=== PATIENT | female | born 1935 | race Caucasian/White ===

== ENCOUNTER 2017-08-21 08:33 | Inpatient (IN) | payer MEDICARE, OTHER ==
[2017-08-21] MEDS ORDERED: PROPOFOL 50 ML IV (08:38)
[2017-08-21] MEDS: IV NORMAL SALINE 1000ML BAG 1,000 ML IV ×3 (08:40→17:12)
[2017-08-21] MEDS ORDERED: dilTIAZem IV PUSH 25 MG/5 ML VIAL (08:42)
[2017-08-21] MEDS: dilTIAZem IV PUSH 25 MG/5 ML VIAL IVP (08:43)
[2017-08-21] MEDS: PROPOFOL 20 ML IV (08:44)
[2017-08-21] MEDS: ACETAMINOPHEN 120 MG SUPP.RECT. PR (08:50)
[2017-08-21] MEDS ORDERED: ACETAMINOPHEN 650 MG SUPP.RECT. (08:58)
[2017-08-21] MEDS ORDERED: NOREPINEPHRIN PREMIX 250 ML IV (09:09)
[2017-08-21] MEDS: NOREPINEPHRIN PREMIX 250 ML IV ×2 (09:17→16:29)
[2017-08-21 09:19] LABS: BILIRUBIN,URINE NEGATIVE (NEG); CLARITY,URINE CLEAR; COLOR,URINE YELLOW; GLUCOSE,URINE NEGATIVE (NEG); NITRITE,URINE NEGATIVE (NEG); PH,URINE 5.5; PROTEIN,URINE 30 mg/dL (NEG-TRACE); UROBILINOGEN,URINE 0.2 mg/dL (0.2 mg/dL)
[2017-08-21 09:21] LABS: ANION GAP 14 (6-14); BLOOD UREA NITROGEN 32 mg/dL (7-20); BUN/CREATININE RATIO 20 (6-20); CALCIUM 7.9 mg/dL (8.5-10.1); CARBON DIOXIDE 29 mmol/L (21-32); CHLORIDE 98 mmol/L (98-107); CREATININE 1.6 mg/dL (0.6-1.0); GFR 30.9; GLUCOSE 114 mg/dL (70-99); POTASSIUM 3.5 mmol/L (3.5-5.1); SODIUM 141 mmol/L (136-145)
[2017-08-21 09:23] LABS: TROPONINI 0.214 ng/mL (0.000-0.055)
[2017-08-21 09:25] LABS: BASO % 0 % (0-3); EOS % 0 % (0-3); LYMPH # 0.9 x10^3/uL (1.0-4.8); LYMPH % 8 % (24-48); MEAN CORPUSCULAR HEMOGLOBIN 22 pg (25-35); MEAN CORPUSCULAR HGB CONC 29 g/dL (31-37); MEAN CORPUSCULAR VOLUME 77 fL (79-100); MONO # 0.2 x10^3/uL (0.0-1.1); MONO % 2 % (0-9); NEUT # 10.4 x10^3uL (1.8-7.7); NEUT % 90 % (31-73); PLATELET COUNT 210 x10^3/uL (140-400); RED BLOOD COUNT 2.64 x10^6/uL (3.50-5.40); RED CELL DISTRIBUTION WIDTH 17.5 % (11.5-14.5); WHITE BLOOD COUNT 11.6 x10^3/uL (4.0-11.0)
[2017-08-21 09:25] LABS: NT-PRO BNP 4872 pg/mL (0-449)
[2017-08-21 09:26] LABS: THYROID STIM HORMONE (TSH) 1.787 uIU/mL (0.358-3.74)
[2017-08-21 09:26] LABS: ALBUMIN 2.7 g/dL (3.4-5.0); ALBUMIN/GLOBULIN RATIO 0.8 (1.0-1.7); ALK PHOS 91 U/L (46-116); ALT (SGPT) 42 U/L (14-59); AST (SGOT) 111 U/L (15-37); CREATINE KINASE 30 U/L (26-192); HEMOGLOBIN 5.9 g/dL (12.0-15.5); LIPASE 84 U/L (73-393); MAGNESIUM 2.4 mg/dL (1.8-2.4); TOTAL BILIRUBIN 0.5 mg/dL (0.2-1.0); TOTAL PROTEIN 6.1 g/dL (6.4-8.2)
[2017-08-21 09:27] LABS: ADD MAN DIFF? YES; HEMATOCRIT 20.3 % (36.0-47.0)
[2017-08-21 09:30] LABS: INFLUENZA A PATIENT NEGATIVE (NEGATIVE)
[2017-08-21 09:31] LABS: INFLUENZA B PATIENT POSITIVE (NEGATIVE); OBC FLU VALID
[2017-08-21] MEDS: MIDAZOLAM HCL/PF 5 MG/5 ML VIAL. IV (09:31)
[2017-08-21] MEDS: PIPERACILLIN/TAZOBACTAM 3.375 GM in IV NORMAL SALINE 50ML 50 ML IV (09:37)
[2017-08-21 09:40] LABS: BASE EXCESS COOX 4 mmol/L (-3-3); BODY TEMP COOX 103.8 DEG; CARBON MONOXIDE 0.9 % (0.0-1.9); CORRECTED PCO2 COOX 37 mmHg; CORRECTED PO2 COOX 151 mmHg; HCO3 COOX 27 mmol/L (21-28); METHEMOGLOBIN 0.7 % (0.0-1.9); OXYHEMOGLOBIN 96.7 %; PCO2 COOX 33 mmHg (35-46); PH COOX 7.54 (7.35-7.45); PO2 COOX 131 mmHg (65-108); SAT O2 COOX 98 % (92-99); TOTAL HEMOGLOBIN 5.4 g/dL
[2017-08-21] MEDS: VANCOMYCIN 2 GM in IV DEXTROSE 5% 500 ML IV (09:43)
[2017-08-21] MEDS ORDERED: levOFLOXacin PER PHARMACY. MC (09:45)
[2017-08-21 09:50] LABS: INR 1.2 (0.8-1.1); PARTIAL THROMBOPLASTIN TIME 27 SEC (24-38)
[2017-08-21 09:54] LABS: LACTIC ACID 6.8 mmol/L (0.4-2.0)
[2017-08-21] MEDS ORDERED: OSELTAMIVIR 30 MG/5 ML ORAL.SUSP. GT (10:01)
[2017-08-21 10:18] LABS: BACTERIA,URINE 0 /HPF (0-FEW); HYALINE CASTS, URINE OCCASIONAL /HPF; RBC,URINE OCC /HPF (0-2); SQUAMOUS EPITHELIAL CELL,UR OCC /LPF; WBC,URINE 0 /HPF (0-4)
[2017-08-21] MEDS ORDERED: ETOMIDATE 20 MG/10 ML VIAL. IV (10:54)
[2017-08-21] MEDS ORDERED: SUCCINYLCHOLINE 200 MG/10 ML VIAL. (10:55)
[2017-08-21] MEDS ORDERED: fentaNYL PF VIAL 100 MCG/2 ML VIAL (10:55)
[2017-08-21] MEDS ORDERED: MIDAZOLAM HCL/PF 5 MG/5 ML VIAL. (10:55)
[2017-08-21] MEDS ORDERED: VANCOMYCIN 1.25 GM in IV DEXTROSE 5 %-0.2 % NACL 250 ML IV (11:00)
[2017-08-21] MEDS ORDERED: methylPREDNISolone SOD SUCC PF 40 MG/ML VIAL. IV (12:00)
[2017-08-21] MEDS: MIDAZOLAM 100MG/100ML PREMIX 100 ML IV ×2 (12:21→18:04)
[2017-08-21] MEDS: OSELTAMIVIR 30 MG/5 ML ORAL.SUSP. GT (12:21)
[2017-08-21] MEDS: IPRATRPIUM/ALBUTEROL 0.5/2.5MG 3 ML NEBU. NEB ×3 (12:24→20:00)
[2017-08-21] MEDS: VANCOMYCIN PER PHARMACY MC ×2 (12:33→12:43)
[2017-08-21 12:51] LABS: LACTIC ACID 2.1 mmol/L (0.4-2.0)
[2017-08-21] MEDS: fentaNYL PF VIAL 100 MCG/2 ML VIAL IV ×2 (13:00)
[2017-08-21 13:56] LABS: % BANDS 15 % (0-9); % LYMPHS 12 % (24-48); % MONOS 3 % (0-10); % SEGS 70 % (35-66)
[2017-08-21 13:57] LABS: ANISOCYTOSIS SLIGHT; HYPOCHROMIA MOD; MICROCYTOSIS SLIGHT; OVALOCYTES FEW; PLT ESTIMATE ADEQUATE (ADEQUATE); POIKILOCYTOSIS SLIGHT; POLYCHROMASIA SLIGHT; SCHISTOCYTES OCC
[2017-08-21 14:41] LABS: IMMEDIATE SPIN CROSSMATCH 1 3
[2017-08-21 15:43] LABS: TROPONINI 0.856 ng/mL (0.000-0.055)
[2017-08-21] MEDS: methylPREDNISolone SOD SUCC PF 40 MG/ML VIAL. IV (16:03)
[2017-08-21] MEDS ORDERED: NALOXONE 0.4 MG/ML VIAL. IV (17:15)
[2017-08-21 17:49] LABS: HEMOGLOBIN 7.4 g/dL (12.0-15.5); MEAN CORPUSCULAR HEMOGLOBIN 25 pg (25-35); MEAN CORPUSCULAR HGB CONC 32 g/dL (31-37); MEAN CORPUSCULAR VOLUME 77 fL (79-100); PLATELET COUNT 114 x10^3/uL (140-400); RED BLOOD COUNT 3.01 x10^6/uL (3.50-5.40); RED CELL DISTRIBUTION WIDTH 17.5 % (11.5-14.5); WHITE BLOOD COUNT 4.9 x10^3/uL (4.0-11.0)
[2017-08-21] MEDS ORDERED: PIPERACILLIN/TAZOBACTAM 3.375 GM in IV DEXTROSE 5% 50 ML IV (18:00)
[2017-08-21] MEDS ORDERED: MICAFUNGIN 100 MG in IV DEXTROSE 5% 100 ML IV (18:00)
[2017-08-21] MEDS: PIPERACILLIN/TAZOBACTAM 3.375 GM in IV NORMAL SALINE 100ML 100 ML IV (18:03)
[2017-08-21] MEDS: MICAFUNGIN 100 MG in IV NORMAL SALINE 100ML 100 ML IV (19:15)
[2017-08-21] MEDS: FAMOTIDINE 20 MG/2 ML VIAL IVP (20:38)
[2017-08-21 22:10] LABS: TROPONINI 0.554 ng/mL (0.000-0.055)
[2017-08-21 23:10] LABS: MRSA BY PCR Negative (Negative)
[2017-08-22] MEDS: methylPREDNISolone SOD SUCC PF 40 MG/ML VIAL. IV ×3 (00:16→17:47)
[2017-08-22] MEDS: PIPERACILLIN/TAZOBACTAM 3.375 GM in IV NORMAL SALINE 100ML 100 ML IV ×4 (00:16→17:47)
[2017-08-22 00:25] LABS: POC GLUCOSE 137 mg/dL (70-99)
[2017-08-22 06:31] LABS: ADD MAN DIFF? NO
[2017-08-22 06:32] LABS: BASO % 0 % (0-3); EOS % 0 % (0-3); HEMATOCRIT 24.6 % (36.0-47.0); HEMOGLOBIN 7.9 g/dL (12.0-15.5); LYMPH # 0.3 x10^3/uL (1.0-4.8); LYMPH % 3 % (24-48); MEAN CORPUSCULAR HEMOGLOBIN 24 pg (25-35); MEAN CORPUSCULAR HGB CONC 32 g/dL (31-37); MEAN CORPUSCULAR VOLUME 76 fL (79-100); MONO # 0.2 x10^3/uL (0.0-1.1); MONO % 2 % (0-9); NEUT # 9.1 x10^3uL (1.8-7.7); NEUT % 95 % (31-73); PLATELET COUNT 94 x10^3/uL (140-400); RED BLOOD COUNT 3.26 x10^6/uL (3.50-5.40); RED CELL DISTRIBUTION WIDTH 17.4 % (11.5-14.5); WHITE BLOOD COUNT 9.6 x10^3/uL (4.0-11.0)
[2017-08-22 06:45] LABS: POC GLUCOSE 136 mg/dL (70-99)
[2017-08-22 06:47] LABS: ANION GAP 11 (6-14); BLOOD UREA NITROGEN 27 mg/dL (7-20); CALCIUM 7.2 mg/dL (8.5-10.1); CARBON DIOXIDE 30 mmol/L (21-32); CHLORIDE 103 mmol/L (98-107); CREATININE 1.2 mg/dL (0.6-1.0); GLUCOSE 142 mg/dL (70-99); SODIUM 144 mmol/L (136-145)
[2017-08-22 06:49] LABS: POTASSIUM 2.4 mmol/L (3.5-5.1)
[2017-08-22 06:57] LABS: AGAP ISTAT 18 mmol/L (6-14); BUN ISTAT 41 mg/dL (8-26); CHLORIDE ISTAT 92 mmol/L (98-110); CREATININE ISTAT 1.5 mg/dL (0.5-1.4); GLUCOSE ISTAT 115 mg/dL (70-99); HEMATOCRIT ISTAT 22 % (36-40); HEMOGLOBIN ISTAT 7.5 g/dL (12-15); ION CA ISTAT 0.97 mmol/L (1.13-1.32); SODIUM ISTAT 136 mmol/L (135-145); TOT CO2 ISTAT 30 mmol/L (23-32)
[2017-08-22 06:58] LABS: TROPONIN BY ISTAT 0.13 ng/ml (<0.08)
[2017-08-22] MEDS: IPRATRPIUM/ALBUTEROL 0.5/2.5MG 3 ML NEBU. NEB ×4 (07:29→20:16)
[2017-08-22 07:51] LABS: BASE EXCESS ABG 4 mmol/L (-3-3); HCO3 ABG 25 mmol/L (21-28); PCO2 ABG 25 mmHg (35-46); PO2 ABG 108 mmHg (65-108); SAT O2 ABG 98 % (92-99)
[2017-08-22 07:57] LABS: PH ABG 7.62 (7.35-7.45)
[2017-08-22] MEDS ORDERED: POTASSIUM CHLORIDE 20 MEQ TABLET.ER. PO (08:00)
[2017-08-22] MEDS: NOREPINEPHRIN PREMIX 250 ML IV (08:01)
[2017-08-22] MEDS: POTASSIUM CHLORIDE 20MEQ 50 ML IV ×4 (08:18→12:57)
[2017-08-22] MEDS: MIDAZOLAM 100MG/100ML PREMIX 100 ML IV ×2 (08:33→20:54)
[2017-08-22] MEDS: VANCOMYCIN PER PHARMACY MC ×2 (10:10→10:24)
[2017-08-22] MEDS: VANCOMYCIN 1.25 GM in IV DEXTROSE 5 %-0.2 % NACL 250 ML IV (11:35)
[2017-08-22] MEDS: DIGOXIN IV 500 MCG/2 ML AMPUL. IV ×3 (11:57→19:30)
[2017-08-22] MEDS ORDERED: ACETAMINOPHEN 325 MG TABLET. PO (13:00)
[2017-08-22] MEDS: ASPIRIN CHEWABLE 81 MG TABLET. PO (13:41)
[2017-08-22] MEDS: METOPROLOL TARTRATE 5 MG/5 ML VIAL. IVP (13:41)
[2017-08-22] MEDS: CITALOPRAM 20 MG TABLET. PO (13:41)
[2017-08-22] MEDS: ARIPiprazole 5 MG TABLET PO (13:41)
[2017-08-22 13:43] LABS: MAGNESIUM 2.3 mg/dL (1.8-2.4)
[2017-08-22 15:12] LABS: FERRITIN 35 ng/mL (8-252)
[2017-08-22] MEDS: IV NORMAL SALINE 1000ML BAG 1,000 ML IV (17:48)
[2017-08-22] MEDS: MICAFUNGIN 100 MG in IV NORMAL SALINE 100ML 100 ML IV (18:07)
[2017-08-22 19:09] LABS: % SAT IRON 6 % (15-34); IRON,SERUM 26 ug/dL (50-170)
[2017-08-22] MEDS ORDERED: DIGOXIN IV 500 MCG/2 ML AMPUL. IV (19:30)
[2017-08-22] MEDS: NYSTATIN TOPICAL POWDER 15GM BOTTLE. TP (20:54)
[2017-08-22] MEDS: FAMOTIDINE 20 MG/2 ML VIAL IVP (20:54)
[2017-08-22] MEDS: CHLORHEXIDINE 0.12% 15 ML MOUTHWASH. SWSP (20:54)
[2017-08-22 21:40] LABS: VITAMIN-B12 > 2000 pg/mL (247-911)
[2017-08-22 21:40] LABS: FOLATE > 24.00 ng/ml (3.2-20.0)
[2017-08-23] MEDS: PIPERACILLIN/TAZOBACTAM 3.375 GM in IV NORMAL SALINE 100ML 100 ML IV ×4 (00:17→17:24)
[2017-08-23] MEDS: methylPREDNISolone SOD SUCC PF 40 MG/ML VIAL. IV ×3 (00:17→16:26)
[2017-08-23 00:48] LABS: POC GLUCOSE 151 mg/dL (70-99)
[2017-08-23] MEDS: DIGOXIN IV 500 MCG/2 ML AMPUL. IV (01:30)
[2017-08-23 06:00] LABS: POC GLUCOSE 139 mg/dL (70-99)
[2017-08-23 06:01] LABS: ADD MAN DIFF? NO
[2017-08-23 06:34] LABS: ALBUMIN 1.8 g/dL (3.4-5.0); ALBUMIN/GLOBULIN RATIO 0.5 (1.0-1.7); ALK PHOS 84 U/L (46-116); ALT (SGPT) 43 U/L (14-59); ANION GAP 6 (6-14); AST (SGOT) 44 U/L (15-37); BLOOD UREA NITROGEN 23 mg/dL (7-20); BUN/CREATININE RATIO 23 (6-20); CALCIUM 7.3 mg/dL (8.5-10.1); CARBON DIOXIDE 31 mmol/L (21-32); CHLORIDE 108 mmol/L (98-107); GFR 53.1; GLUCOSE 152 mg/dL (70-99); POTASSIUM 3.1 mmol/L (3.5-5.1); SODIUM 145 mmol/L (136-145); TOTAL BILIRUBIN 0.7 mg/dL (0.2-1.0); TOTAL PROTEIN 5.1 g/dL (6.4-8.2)
[2017-08-23] MEDS: NOREPINEPHRIN PREMIX 250 ML IV (07:04)
[2017-08-23 07:07] LABS: BASO % 0 % (0-3); EOS % 0 % (0-3); HEMATOCRIT 25.9 % (36.0-47.0); LYMPH # 0.3 x10^3/uL (1.0-4.8); LYMPH % 3 % (24-48); MEAN CORPUSCULAR HEMOGLOBIN 24 pg (25-35); MEAN CORPUSCULAR HGB CONC 31 g/dL (31-37); MEAN CORPUSCULAR VOLUME 77 fL (79-100); MONO # 0.2 x10^3/uL (0.0-1.1); MONO % 2 % (0-9); NEUT # 9.7 x10^3uL (1.8-7.7); NEUT % 94 % (31-73); PLATELET COUNT 101 x10^3/uL (140-400); RED BLOOD COUNT 3.37 x10^6/uL (3.50-5.40); RED CELL DISTRIBUTION WIDTH 17.4 % (11.5-14.5); WHITE BLOOD COUNT 10.3 x10^3/uL (4.0-11.0)
[2017-08-23] MEDS: IPRATRPIUM/ALBUTEROL 0.5/2.5MG 3 ML NEBU. NEB ×4 (07:23→19:31)
[2017-08-23] MEDS: CHLORHEXIDINE 0.12% 15 ML MOUTHWASH. SWSP ×2 (08:02→20:57)
[2017-08-23] MEDS: CITALOPRAM 20 MG TABLET. PO (08:02)
[2017-08-23] MEDS: ASPIRIN CHEWABLE 81 MG TABLET. PO (08:03)
[2017-08-23] MEDS: ARIPiprazole 5 MG TABLET PO (08:03)
[2017-08-23] MEDS: NYSTATIN TOPICAL POWDER 15GM BOTTLE. TP ×2 (08:03→21:00)
[2017-08-23] MEDS: MIDAZOLAM 100MG/100ML PREMIX 100 ML IV ×2 (08:17→20:42)
[2017-08-23 08:43] LABS: BASE EXCESS ABG 5 mmol/L (-3-3); HCO3 ABG 29 mmol/L (21-28); PCO2 ABG 41 mmHg (35-46); PH ABG 7.47 (7.35-7.45); PO2 ABG 81 mmHg (65-108); SAT O2 ABG 96 % (92-99)
[2017-08-23 08:44] LABS: FIO2 ABG 40
[2017-08-23 08:56] LABS: POC GLUCOSE 155 mg/dL (70-99)
[2017-08-23 11:01] LABS: VANC TR 14.3 mcg/mL (10.0-20.0)
[2017-08-23] MEDS: VANCOMYCIN 1.25 GM in IV DEXTROSE 5 %-0.2 % NACL 250 ML IV (11:08)
[2017-08-23] MEDS: VANCOMYCIN PER PHARMACY MC ×2 (11:31→12:40)
[2017-08-23] MEDS: IV NORMAL SALINE 1000ML BAG 1,000 ML IV (16:27)
[2017-08-23] MEDS: FUROSEMIDE 40 MG/4 ML VIAL. IVP (17:24)
[2017-08-23] MEDS: POTASSIUM CHLORIDE 20MEQ 50 ML IV ×3 (17:24→22:16)
[2017-08-23] MEDS: FAMOTIDINE 20 MG/2 ML VIAL IVP (20:57)
[2017-08-23] MEDS: MICAFUNGIN 100 MG in IV NORMAL SALINE 100ML 100 ML IV (20:59)
[2017-08-24] MEDS: PIPERACILLIN/TAZOBACTAM 3.375 GM in IV NORMAL SALINE 100ML 100 ML IV ×5 (00:28→23:20)
[2017-08-24] MEDS: methylPREDNISolone SOD SUCC PF 40 MG/ML VIAL. IV ×3 (00:28→14:13)
[2017-08-24 00:49] LABS: POC GLUCOSE 162 mg/dL (70-99)
[2017-08-24] MEDS: POTASSIUM CHLORIDE 20MEQ 50 ML IV (01:43)
[2017-08-24 06:25] LABS: POC GLUCOSE 168 mg/dL (70-99)
[2017-08-24 06:31] LABS: ADD MAN DIFF? NO
[2017-08-24 06:43] LABS: BASO % 0 % (0-3); EOS % 0 % (0-3); HEMATOCRIT 23.8 % (36.0-47.0); HEMOGLOBIN 7.3 g/dL (12.0-15.5); LYMPH # 0.3 x10^3/uL (1.0-4.8); LYMPH % 3 % (24-48); MEAN CORPUSCULAR HEMOGLOBIN 24 pg (25-35); MEAN CORPUSCULAR HGB CONC 31 g/dL (31-37); MEAN CORPUSCULAR VOLUME 77 fL (79-100); MONO # 0.2 x10^3/uL (0.0-1.1); MONO % 3 % (0-9); NEUT # 7.4 x10^3uL (1.8-7.7); NEUT % 93 % (31-73); PLATELET COUNT 86 x10^3/uL (140-400); RED BLOOD COUNT 3.08 x10^6/uL (3.50-5.40); RED CELL DISTRIBUTION WIDTH 17.9 % (11.5-14.5)
[2017-08-24 06:55] LABS: ALBUMIN 1.7 g/dL (3.4-5.0); ALBUMIN/GLOBULIN RATIO 0.5 (1.0-1.7); ALK PHOS 67 U/L (46-116); ALT (SGPT) 35 U/L (14-59); ANION GAP 5 (6-14); AST (SGOT) 27 U/L (15-37); BLOOD UREA NITROGEN 26 mg/dL (7-20); BUN/CREATININE RATIO 26 (6-20); CALCIUM 7.5 mg/dL (8.5-10.1); CARBON DIOXIDE 32 mmol/L (21-32); CHLORIDE 112 mmol/L (98-107); GFR 53.1; GLUCOSE 180 mg/dL (70-99); POTASSIUM 3.7 mmol/L (3.5-5.1); SODIUM 149 mmol/L (136-145); TOTAL BILIRUBIN 0.4 mg/dL (0.2-1.0); TOTAL PROTEIN 4.9 g/dL (6.4-8.2)
[2017-08-24] MEDS: CHLORHEXIDINE 0.12% 15 ML MOUTHWASH. SWSP ×2 (08:18→20:28)
[2017-08-24] MEDS: MIDAZOLAM 100MG/100ML PREMIX 100 ML IV (08:18)
[2017-08-24] MEDS: IPRATRPIUM/ALBUTEROL 0.5/2.5MG 3 ML NEBU. NEB ×4 (08:18→20:12)
[2017-08-24] MEDS: ASPIRIN CHEWABLE 81 MG TABLET. PO (08:19)
[2017-08-24] MEDS: NYSTATIN TOPICAL POWDER 15GM BOTTLE. TP ×2 (08:20→20:30)
[2017-08-24] MEDS: CITALOPRAM 20 MG TABLET. PO (08:20)
[2017-08-24] MEDS: ARIPiprazole 5 MG TABLET PO (08:20)
[2017-08-24 08:28] LABS: BASE EXCESS ABG 6 mmol/L (-3-3); HCO3 ABG 31 mmol/L (21-28); PCO2 ABG 43 mmHg (35-46); PH ABG 7.47 (7.35-7.45); PO2 ABG 74 mmHg (65-108); SAT O2 ABG 94 % (92-99)
[2017-08-24 08:30] LABS: FIO2 ABG 40
[2017-08-24] MEDS: VANCOMYCIN PER PHARMACY MC (09:53)
[2017-08-24] MEDS: VANCOMYCIN 1.25 GM in IV DEXTROSE 5 %-0.2 % NACL 250 ML IV (13:06)
[2017-08-24] MEDS: FUROSEMIDE 20 MG/2 ML VIAL. IVP (14:13)
[2017-08-24] MEDS: IV NORMAL SALINE 1000ML BAG 1,000 ML IV (18:10)
[2017-08-24] MEDS: MICAFUNGIN 100 MG in IV NORMAL SALINE 100ML 100 ML IV (18:10)
[2017-08-24] MEDS: FAMOTIDINE 20 MG/2 ML VIAL IVP (20:28)
[2017-08-25] MEDS: PIPERACILLIN/TAZOBACTAM 3.375 GM in IV NORMAL SALINE 100ML 100 ML IV ×4 (05:59→23:57)
[2017-08-25 06:41] LABS: ADD MAN DIFF? NO
[2017-08-25 06:47] LABS: BASO % 0 % (0-3); EOS % 0 % (0-3); HEMATOCRIT 22.8 % (36.0-47.0); LYMPH # 0.3 x10^3/uL (1.0-4.8); LYMPH % 5 % (24-48); MEAN CORPUSCULAR HEMOGLOBIN 24 pg (25-35); MEAN CORPUSCULAR HGB CONC 30 g/dL (31-37); MEAN CORPUSCULAR VOLUME 79 fL (79-100); MONO # 0.2 x10^3/uL (0.0-1.1); MONO % 4 % (0-9); NEUT # 4.4 x10^3uL (1.8-7.7); NEUT % 91 % (31-73); PLATELET COUNT 84 x10^3/uL (140-400); RED CELL DISTRIBUTION WIDTH 18.4 % (11.5-14.5); WHITE BLOOD COUNT 4.9 x10^3/uL (4.0-11.0)
[2017-08-25 06:58] LABS: HEMOGLOBIN 6.8 g/dL (12.0-15.5)
[2017-08-25] MEDS: IPRATRPIUM/ALBUTEROL 0.5/2.5MG 3 ML NEBU. NEB ×4 (06:58→20:01)
[2017-08-25 06:59] LABS: ALBUMIN 1.7 g/dL (3.4-5.0); ALBUMIN/GLOBULIN RATIO 0.6 (1.0-1.7); ALK PHOS 68 U/L (46-116); ALT (SGPT) 30 U/L (14-59); ANION GAP 5 (6-14); AST (SGOT) 19 U/L (15-37); BLOOD UREA NITROGEN 36 mg/dL (7-20); BUN/CREATININE RATIO 40 (6-20); CARBON DIOXIDE 32 mmol/L (21-32); CHLORIDE 112 mmol/L (98-107); CREATININE 0.9 mg/dL (0.6-1.0); GFR 59.9; GLUCOSE 178 mg/dL (70-99); SODIUM 149 mmol/L (136-145); TOTAL BILIRUBIN 0.3 mg/dL (0.2-1.0); TOTAL PROTEIN 4.4 g/dL (6.4-8.2)
[2017-08-25 07:07] LABS: BASE EXCESS ABG 1 mmol/L (-3-3); HCO3 ABG 26 mmol/L (21-28); PCO2 ABG 41 mmHg (35-46); PH ABG 7.41 (7.35-7.45); PO2 ABG 88 mmHg (65-108); SAT O2 ABG 96 % (92-99)
[2017-08-25] MEDS ORDERED: ACETAMINOPHEN 325 MG TABLET. PO (07:30)
[2017-08-25 09:39] LABS: IMMEDIATE SPIN CROSSMATCH 1 1
[2017-08-25] MEDS: CHLORHEXIDINE 0.12% 15 ML MOUTHWASH. SWSP ×2 (09:41→20:56)
[2017-08-25] MEDS: VANCOMYCIN PER PHARMACY MC (09:42)
[2017-08-25] MEDS: ASPIRIN CHEWABLE 81 MG TABLET. PO (09:42)
[2017-08-25] MEDS: methylPREDNISolone SOD SUCC PF 40 MG/ML VIAL. IV (09:43)
[2017-08-25] MEDS: ARIPiprazole 5 MG TABLET PO (09:43)
[2017-08-25] MEDS: NYSTATIN TOPICAL POWDER 15GM BOTTLE. TP ×2 (09:43→20:56)
[2017-08-25] MEDS: CITALOPRAM 20 MG TABLET. PO (09:43)
[2017-08-25 09:58] LABS: FIO2 ABG 40
[2017-08-25] MEDS: FUROSEMIDE 20 MG/2 ML VIAL. IVP (13:38)
[2017-08-25 15:24] LABS: FECAL OB PT POSITIVE (NEG); NEG OBC FOB NEG; POS OBC FOB POS
[2017-08-25] MEDS: MICAFUNGIN 100 MG in IV NORMAL SALINE 100ML 100 ML IV (20:01)
[2017-08-25] MEDS: FAMOTIDINE 20 MG/2 ML VIAL IVP (20:56)
[2017-08-26 02:16] LABS: C DIFF BY PCR Negative (Negative)
[2017-08-26] MEDS: PIPERACILLIN/TAZOBACTAM 3.375 GM in IV NORMAL SALINE 100ML 100 ML IV ×3 (05:44→18:31)
[2017-08-26 05:57] LABS: ADD MAN DIFF? NO
[2017-08-26 05:59] LABS: BASO % 0 % (0-3); EOS % 0 % (0-3); HEMATOCRIT 26.4 % (36.0-47.0); HEMOGLOBIN 8.1 g/dL (12.0-15.5); LYMPH # 0.4 x10^3/uL (1.0-4.8); LYMPH % 8 % (24-48); MEAN CORPUSCULAR HEMOGLOBIN 24 pg (25-35); MEAN CORPUSCULAR HGB CONC 31 g/dL (31-37); MEAN CORPUSCULAR VOLUME 79 fL (79-100); MONO # 0.3 x10^3/uL (0.0-1.1); MONO % 6 % (0-9); NEUT % 85 % (31-73); PLATELET COUNT 89 x10^3/uL (140-400); RED BLOOD COUNT 3.35 x10^6/uL (3.50-5.40); RED CELL DISTRIBUTION WIDTH 18.2 % (11.5-14.5); WHITE BLOOD COUNT 4.7 x10^3/uL (4.0-11.0)
[2017-08-26 06:52] LABS: ALBUMIN 1.7 g/dL (3.4-5.0); ALBUMIN/GLOBULIN RATIO 0.6 (1.0-1.7); ALK PHOS 66 U/L (46-116); ALT (SGPT) 33 U/L (14-59); ANION GAP 6 (6-14); AST (SGOT) 29 U/L (15-37); BLOOD UREA NITROGEN 41 mg/dL (7-20); BUN/CREATININE RATIO 46 (6-20); CALCIUM 7.6 mg/dL (8.5-10.1); CARBON DIOXIDE 30 mmol/L (21-32); CHLORIDE 113 mmol/L (98-107); CREATININE 0.9 mg/dL (0.6-1.0); GFR 59.9; GLUCOSE 144 mg/dL (70-99); POTASSIUM 4.2 mmol/L (3.5-5.1); SODIUM 149 mmol/L (136-145); TOTAL BILIRUBIN 0.3 mg/dL (0.2-1.0); TOTAL PROTEIN 4.6 g/dL (6.4-8.2)
[2017-08-26] MEDS: methylPREDNISolone SOD SUCC PF 40 MG/ML VIAL. IV (08:27)
[2017-08-26] MEDS: ARIPiprazole 5 MG TABLET PO (08:27)
[2017-08-26] MEDS: CHLORHEXIDINE 0.12% 15 ML MOUTHWASH. SWSP ×2 (08:27→21:03)
[2017-08-26] MEDS: ASPIRIN CHEWABLE 81 MG TABLET. PO (08:28)
[2017-08-26] MEDS: CITALOPRAM 20 MG TABLET. PO (08:28)
[2017-08-26] MEDS: NYSTATIN TOPICAL POWDER 15GM BOTTLE. TP ×2 (08:28→21:03)
[2017-08-26] MEDS: IPRATRPIUM/ALBUTEROL 0.5/2.5MG 3 ML NEBU. NEB ×4 (08:47→19:37)
[2017-08-26 09:11] LABS: BASE EXCESS ABG 5 mmol/L (-3-3); HCO3 ABG 30 mmol/L (21-28); PCO2 ABG 49 mmHg (35-46); PH ABG 7.41 (7.35-7.45); PO2 ABG 93 mmHg (65-108); SAT O2 ABG 97 % (92-99)
[2017-08-26 09:14] LABS: FIO2 ABG 40
[2017-08-26 12:12] LABS: WHITE BLOOD COUNT 5.6 x10^3/uL (4.0-11.0)
[2017-08-26 12:13] LABS: HEMATOCRIT 26.4 % (36.0-47.0); HEMOGLOBIN 8.3 g/dL (12.0-15.5); MEAN CORPUSCULAR HEMOGLOBIN 25 pg (25-35); MEAN CORPUSCULAR HGB CONC 31 g/dL (31-37); MEAN CORPUSCULAR VOLUME 78 fL (79-100); PLATELET COUNT 92 x10^3/uL (140-400); RED BLOOD COUNT 3.37 x10^6/uL (3.50-5.40); RED CELL DISTRIBUTION WIDTH 17.9 % (11.5-14.5)
[2017-08-26] MEDS: METOPROLOL TARTRATE 5 MG/5 ML VIAL. IVP ×2 (15:17→18:31)
[2017-08-26] MEDS ORDERED: METOPROLOL TARTRATE 5 MG/5 ML VIAL. IVP (18:00)
[2017-08-26] MEDS: MICAFUNGIN 100 MG in IV NORMAL SALINE 100ML 100 ML IV (18:32)
[2017-08-26] MEDS: FAMOTIDINE 20 MG/2 ML VIAL IVP (21:03)
[2017-08-26 22:17] LABS: HEMATOCRIT 27.1 % (36.0-47.0); HEMOGLOBIN 8.5 g/dL (12.0-15.5); MEAN CORPUSCULAR HEMOGLOBIN 25 pg (25-35); MEAN CORPUSCULAR HGB CONC 31 g/dL (31-37); MEAN CORPUSCULAR VOLUME 79 fL (79-100); PLATELET COUNT 100 x10^3/uL (140-400); RED BLOOD COUNT 3.44 x10^6/uL (3.50-5.40); RED CELL DISTRIBUTION WIDTH 18.4 % (11.5-14.5); WHITE BLOOD COUNT 7.4 x10^3/uL (4.0-11.0)
[2017-08-27] MEDS: PIPERACILLIN/TAZOBACTAM 3.375 GM in IV NORMAL SALINE 100ML 100 ML IV ×4 (03:35→16:32)
[2017-08-27] MEDS: METOPROLOL TARTRATE 5 MG/5 ML VIAL. IVP ×4 (03:36→16:34)
[2017-08-27] MEDS: NYSTATIN TOPICAL POWDER 15GM BOTTLE. TP ×2 (07:18→21:05)
[2017-08-27] MEDS: CHLORHEXIDINE 0.12% 15 ML MOUTHWASH. SWSP ×2 (07:18→21:05)
[2017-08-27] MEDS: CITALOPRAM 20 MG TABLET. PO (07:21)
[2017-08-27] MEDS: ARIPiprazole 5 MG TABLET PO (07:21)
[2017-08-27] MEDS: ASPIRIN CHEWABLE 81 MG TABLET. PO (07:22)
[2017-08-27 07:42] LABS: ADD MAN DIFF? NO
[2017-08-27 07:48] LABS: BASO % 0 % (0-3); EOS % 1 % (0-3); HEMATOCRIT 25.4 % (36.0-47.0); HEMOGLOBIN 7.9 g/dL (12.0-15.5); LYMPH # 0.8 x10^3/uL (1.0-4.8); LYMPH % 14 % (24-48); MEAN CORPUSCULAR HEMOGLOBIN 24 pg (25-35); MEAN CORPUSCULAR HGB CONC 31 g/dL (31-37); MEAN CORPUSCULAR VOLUME 79 fL (79-100); MONO # 0.3 x10^3/uL (0.0-1.1); MONO % 6 % (0-9); NEUT # 4.7 x10^3uL (1.8-7.7); NEUT % 80 % (31-73); PLATELET COUNT 98 x10^3/uL (140-400); RED BLOOD COUNT 3.23 x10^6/uL (3.50-5.40); RED CELL DISTRIBUTION WIDTH 18.5 % (11.5-14.5); WHITE BLOOD COUNT 5.9 x10^3/uL (4.0-11.0)
[2017-08-27] MEDS: IPRATRPIUM/ALBUTEROL 0.5/2.5MG 3 ML NEBU. NEB ×4 (07:59→19:49)
[2017-08-27 08:13] LABS: ALBUMIN 1.8 g/dL (3.4-5.0); ALBUMIN/GLOBULIN RATIO 0.7 (1.0-1.7); ALK PHOS 68 U/L (46-116); ALT (SGPT) 40 U/L (14-59); ANION GAP 4 (6-14); AST (SGOT) 31 U/L (15-37); BLOOD UREA NITROGEN 43 mg/dL (7-20); BUN/CREATININE RATIO 48 (6-20); CALCIUM 7.6 mg/dL (8.5-10.1); CARBON DIOXIDE 33 mmol/L (21-32); CHLORIDE 113 mmol/L (98-107); CREATININE 0.9 mg/dL (0.6-1.0); GFR 59.9; GLUCOSE 113 mg/dL (70-99); POTASSIUM 4.2 mmol/L (3.5-5.1); SODIUM 150 mmol/L (136-145); TOTAL BILIRUBIN 0.3 mg/dL (0.2-1.0); TOTAL PROTEIN 4.4 g/dL (6.4-8.2)
[2017-08-27 08:57] LABS: BASE EXCESS ABG 8 mmol/L (-3-3); HCO3 ABG 32 mmol/L (21-28); PCO2 ABG 40 mmHg (35-46); PH ABG 7.52 (7.35-7.45); PO2 ABG 88 mmHg (65-108); SAT O2 ABG 96 % (92-99)
[2017-08-27 09:08] LABS: FIO2 ABG 40
[2017-08-27] MEDS ORDERED: DEXTROSE 50% 25 GM / 50ML DISP.SYRIN. IV (10:15)
[2017-08-27] MEDS: INSULIN ASPART 300 UNITS/3 ML INSULN.PEN SQ ×2 (11:20→16:32)
[2017-08-27 11:31] LABS: POC GLUCOSE 122 mg/dL (70-99)
[2017-08-27 16:39] LABS: POC GLUCOSE 130 mg/dL (70-99)
[2017-08-27] MEDS: MICAFUNGIN 100 MG in IV NORMAL SALINE 100ML 100 ML IV (17:32)
[2017-08-27] MEDS: FAMOTIDINE 20 MG/2 ML VIAL IVP (21:05)
[2017-08-28] MEDS: METOPROLOL TARTRATE 5 MG/5 ML VIAL. IVP ×3 (00:18→11:49)
[2017-08-28] MEDS: PIPERACILLIN/TAZOBACTAM 3.375 GM in IV NORMAL SALINE 100ML 100 ML IV ×3 (00:18→11:48)
[2017-08-28] MEDS: IPRATRPIUM/ALBUTEROL 0.5/2.5MG 3 ML NEBU. NEB ×4 (03:54→17:00)
[2017-08-28 06:49] LABS: ADD MAN DIFF? NO
[2017-08-28 06:59] LABS: BASO % 0 % (0-3); EOS # 0.1 x10^3/uL (0.0-0.7); EOS % 2 % (0-3); HEMATOCRIT 24.4 % (36.0-47.0); HEMOGLOBIN 7.6 g/dL (12.0-15.5); LYMPH # 0.7 x10^3/uL (1.0-4.8); LYMPH % 10 % (24-48); MEAN CORPUSCULAR HEMOGLOBIN 24 pg (25-35); MEAN CORPUSCULAR HGB CONC 31 g/dL (31-37); MEAN CORPUSCULAR VOLUME 79 fL (79-100); MONO # 0.3 x10^3/uL (0.0-1.1); MONO % 5 % (0-9); NEUT # 5.8 x10^3uL (1.8-7.7); NEUT % 83 % (31-73); PLATELET COUNT 105 x10^3/uL (140-400); RED BLOOD COUNT 3.11 x10^6/uL (3.50-5.40); RED CELL DISTRIBUTION WIDTH 19.2 % (11.5-14.5)
[2017-08-28 07:09] LABS: ALBUMIN 1.7 g/dL (3.4-5.0); ALBUMIN/GLOBULIN RATIO 0.6 (1.0-1.7); ALK PHOS 67 U/L (46-116); ALT (SGPT) 32 U/L (14-59); ANION GAP 3 (6-14); AST (SGOT) 22 U/L (15-37); BLOOD UREA NITROGEN 35 mg/dL (7-20); BUN/CREATININE RATIO 44 (6-20); CALCIUM 7.5 mg/dL (8.5-10.1); CARBON DIOXIDE 32 mmol/L (21-32); CHLORIDE 111 mmol/L (98-107); CREATININE 0.8 mg/dL (0.6-1.0); GFR 68.7; GLUCOSE 134 mg/dL (70-99); POTASSIUM 4.3 mmol/L (3.5-5.1); SODIUM 146 mmol/L (136-145); TOTAL BILIRUBIN 0.4 mg/dL (0.2-1.0); TOTAL PROTEIN 4.4 g/dL (6.4-8.2)
[2017-08-28] MEDS: INSULIN ASPART 300 UNITS/3 ML INSULN.PEN SQ ×3 (07:41→17:00)
[2017-08-28] MEDS: ARIPiprazole 5 MG TABLET PO (07:41)
[2017-08-28] MEDS: CITALOPRAM 20 MG TABLET. PO (07:41)
[2017-08-28] MEDS: NYSTATIN TOPICAL POWDER 15GM BOTTLE. TP ×2 (07:41→21:00)
[2017-08-28] MEDS: CHLORHEXIDINE 0.12% 15 ML MOUTHWASH. SWSP (07:41)
[2017-08-28] MEDS: ASPIRIN CHEWABLE 81 MG TABLET. PO (07:41)
[2017-08-28 08:11] LABS: POC GLUCOSE 120 mg/dL (70-99)
[2017-08-28 10:01] LABS: BASE EXCESS ABG 4 mmol/L (-3-3); HCO3 ABG 27 mmol/L (21-28); PCO2 ABG 35 mmHg (35-46); PO2 ABG 108 mmHg (65-108); SAT O2 ABG 98 % (92-99)
[2017-08-28 10:07] LABS: FIO2 ABG 40
[2017-08-28 12:02] LABS: POC GLUCOSE 126 mg/dL (70-99)
[2017-08-28 12:52] LABS: BASE EXCESS COOX 5 mmol/L (-3-3); CARBON MONOXIDE 0.6 % (0.0-1.9); HCO3 COOX 29 mmol/L (21-28); METHEMOGLOBIN 0.6 % (0.0-1.9); OXYHEMOGLOBIN 96.8 %; PCO2 COOX 40 mmHg (35-46); PH COOX 7.48 (7.35-7.45); PO2 COOX 116 mmHg (65-108); SAT O2 COOX 98 % (92-99); TOTAL HEMOGLOBIN 7.9 g/dL
[2017-08-28 12:59] LABS: FIO2 COOX 40
[2017-08-28] MEDS: MORPHINE SULFATE 4 MG/ML DISP.SYRIN. IV (14:36)
[2017-08-28] MEDS: MORPHINE SULFATE/PF 30 ML IV (14:59)
[2017-08-28] MEDS: FAMOTIDINE 20 MG/2 ML VIAL IVP (21:00)
[2017-08-29] MEDS: MORPHINE SULFATE/PF 30 ML IV ×2 (05:32→19:22)
[2017-08-29] MEDS: IPRATRPIUM/ALBUTEROL 0.5/2.5MG 3 ML NEBU. NEB ×2 (07:27→11:19)
[2017-08-29] MEDS: INSULIN ASPART 300 UNITS/3 ML INSULN.PEN SQ ×3 (08:00→17:00)
[2017-08-29] MEDS: NYSTATIN TOPICAL POWDER 15GM BOTTLE. TP ×2 (09:00→21:00)
[2017-08-29] MEDS: ARIPiprazole 5 MG TABLET PO (09:00)
[2017-08-29] MEDS: CITALOPRAM 20 MG TABLET. PO (09:00)
[2017-08-29] MEDS: ASPIRIN CHEWABLE 81 MG TABLET. PO (09:00)
[2017-08-29] MEDS: FAMOTIDINE 20 MG/2 ML VIAL IVP (21:00)
[2017-08-30] MEDS: INSULIN ASPART 300 UNITS/3 ML INSULN.PEN SQ ×3 (08:00→16:18)
[2017-08-30] MEDS: CITALOPRAM 20 MG TABLET. PO (09:00)
[2017-08-30] MEDS: NYSTATIN TOPICAL POWDER 15GM BOTTLE. TP ×2 (09:00→21:00)
[2017-08-30] MEDS: ASPIRIN CHEWABLE 81 MG TABLET. PO (09:00)
[2017-08-30] MEDS: ARIPiprazole 5 MG TABLET PO (09:00)
[2017-08-30] MEDS: FAMOTIDINE 20 MG/2 ML VIAL IVP (21:00)
[2017-08-30] MEDS: MORPHINE SULFATE/PF 30 ML IV (23:21)
[2017-08-31] MEDS: MORPHINE SULFATE/PF 30 ML IV ×4 (06:52→19:04)
[2017-08-31] MEDS: INSULIN ASPART 300 UNITS/3 ML INSULN.PEN SQ (08:00)
[2017-08-31] MEDS: ASPIRIN CHEWABLE 81 MG TABLET. PO (09:00)
[2017-08-31] MEDS: ARIPiprazole 5 MG TABLET PO (09:00)
[2017-08-31] MEDS: NYSTATIN TOPICAL POWDER 15GM BOTTLE. TP ×2 (09:00→21:00)
[2017-08-31] MEDS: CITALOPRAM 20 MG TABLET. PO (09:00)
[2017-08-31] MEDS ORDERED: ATROPINE 1% OPHTH SOLUTION 5ML BOTTLE. SL (11:15)
[2017-08-31] MEDS ORDERED: LORazepam INTENSOL 2 MG/ML ORAL.CONC SL (11:15)
[2017-08-31] MEDS ORDERED: ACETAMINOPHEN 325 MG SUPP.RECT. PR (11:30)
[2017-08-31] MEDS: MORPHINE SULFATE 20 MG/ML CONC SOLUTION. SL ×2 (13:11→16:47)
[2017-08-31] MEDS: SCOPOLAMINE 1.5MG PATCH. TD (13:44)
[2017-08-31] MEDS: IV NORMAL SALINE 1000ML BAG 1,000 ML IV (23:36)
[2017-09-01] MEDS: MORPHINE SULFATE/PF 30 ML IV ×2 (00:04→04:22)
== END 2017-09-01 06:40 | disposition expired | DRG 870 ==
LOC: 6 SOUTH 08-29 00:27 → ER 08:33 → 1 WEST ICU 09:29
PROC: 30233N1 Transfusion of Nonautologous Red Blood Cells into Peripheral Vein, Percutaneous Approach (ICD-10-PCS; principal; 2017-08-21)
PROC: 0BH17EZ Insertion of Endotracheal Airway into Trachea, Via Natural or Artificial Opening (ICD-10-PCS; 2017-08-21)
PROC: 5A1955Z Respiratory Ventilation, Greater than 96 Consecutive Hours (ICD-10-PCS; 2017-08-21)
PROC: 05HM33Z Insertion of Infusion Device into Right Internal Jugular Vein, Percutaneous Approach (ICD-10-PCS; 2017-08-21)
PROC: B543ZZA Ultrasonography of Right Jugular Veins, Guidance (ICD-10-PCS; 2017-08-21)
DX: A41.9 Sepsis, unspecified organism (principal); J96.01 Acute respiratory failure with hypoxia; N17.0 Acute kidney failure with tubular necrosis; J10.00 Influenza due to other identified influenza virus with unspecified type of pneumonia; R57.1 Hypovolemic shock; R65.21 Severe sepsis with septic shock; E87.0 Hyperosmolality and hypernatremia; G92 Toxic encephalopathy; I50.9 Heart failure, unspecified; B37.2 Candidiasis of skin and nail; J98.01 Acute bronchospasm; I48.91 Unspecified atrial fibrillation; D50.0 Iron deficiency anemia secondary to blood loss (chronic); F25.9 Schizoaffective disorder, unspecified; E78.5 Hyperlipidemia, unspecified; E87.6 Hypokalemia; F03.90 Unspecified dementia, unspecified severity, without behavioral disturbance, psychotic disturbance, mood disturbance, and anxiety; H35.30 Unspecified macular degeneration; K21.9 Gastro-esophageal reflux disease without esophagitis; Z51.5 Encounter for palliative care; Z66 Do not resuscitate; Z87.440 Personal history of urinary (tract) infections; E55.9 Vitamin D deficiency, unspecified; F32.9 Major depressive disorder, single episode, unspecified; F41.9 Anxiety disorder, unspecified; K59.00 Constipation, unspecified; M19.90 Unspecified osteoarthritis, unspecified site
CPT/HCPCS: 31500; 36415; 36600; 71045; 71250; 80047; 80048; 80053; 80202; 81001; 82274; 82550; 82607; 82728; 82746; 82805; 82962; 83540; 83550; 83605; 83690; 83735; 83880; 84443; 84484; 85007; 85025; 85027; 85610; 85730; 86850; 86900; 86901; 86920; 87040; 87070; 87205; 87324; 87641; 87804; 87804-59; 93005; 93306; 93970; 94002; 94003; 94640; 94760; 96374; 96375; 99291-25; J1160; J1815; J1940; J1956; J2060; J2248; J2250; J2270; J2543; J2704; J2920; J3010; J3370; J3480; J3490; J7030; J7620; P9016; S0028